=== PATIENT | male | born 1960 | race Caucasian/White ===

== ENCOUNTER 2025-02-24 13:47 | Inpatient (IN) | payer BC, SELFPAY ==
[2025-02-24] VITALS (30 sets, daily range): BP systolic 126–171; BP diastolic 76–101; PULSE 82–96; RESP 10–24; O2SAT 93–97; BMI 90.1; BMI 33.5
--- NOTE | 2025-02-24 12:54 | IR_ITS ---
APPROVED REPORT Patient Location: [facility] Sealer: ALAN Green RT (R) PROCEDURES Left heart catheterization Left ventriculogram Selective coronary angiogram Mechanical thrombectomy to the proximal LAD Drug-eluting stent deployment to the proximal and mid LAD in a contiguous manner Intravascular ultrasound of the LAD INDICATION Acute anterior ST elevation myocardial infarction, Coronary artery disease, Complex intervention Informed consent was obtained prior to the procedure. COMPLICATIONS None Estimated Blood Loss: Less than 10 mls TECHNIQUE One percent lidocaine used to anesthetize the right anterior aspect of the wrist. The right radial artery was accessed via the Seldinger technique. A 6 Sinhala sheath was placed in the right radial artery. 2.5 mg of Verapamil, 800 mcg of nitroglycerin, 1mg Lidocaine and 5000 U Heparin were given through the arterial sheath. The JL3 catheter was also used to perform left heart catheterization, left ventriculogram and selective coronary angiogram. Therapeutic heparin was already administered giving a therapeutic ACT and the guide catheter was placed in the left main artery followed by Choice PT extra-support wire placed distally. A penumbra catheter was advanced and passed giving mechanical thrombectomy to the LAD and restoring SHARA II flow. A 3 mm x 12 mm noncompliant balloon was deployed in the proximal and mid LAD to predilate the stenosis further reducing the stenosis. A 3.5 x 38 mm Fre[place] frontier stent was deployed at 20 waldo reducing the stenosis to 30%. A 3.5 x 12 mm noncompliant balloon was placed in the mid LAD and deployed at 20 and then 24 waldo to further post dilate. An additional 3.75 x 8 mm noncompliant balloon was deployed in the same area at 24 waldo reducing the stenosis to 10%. At the end of the procedure the apparatus was removed sheath was removed and hemostasis was achieved using TR banding patient was transferred to the postop holding in stable condition. Initial presentation the LAD had SHARA 0 flow with SHARA-3 flow at the end of the procedure ANGIOGRAPHIC RESULTS The left main artery Normal The left anterior descending artery Initially proximally occluded. Following revascularization there is a stent in the proximal to mid segment which is widely patent with 10% residual stenosis due to extensive mid vessel calcification throughout the LAD The circumflex artery Nondominant mild atheromatous plaque The right coronary artery Massively large dominant with diffuse 20% luminal regularities The ZURITA ventriculogram reveals Performed but not adequately opacified to estimate ejection fraction. Ejection fraction is greater than 30% The left ventricular end-diastolic pressure 15 mmHg IMPRESSION Acute proximal LAD occlusion as described above Successful stenting of the proximal LAD 100% occlusion reduced to less than 10% with 1 drug-eluting stent Normal LVEDP PLAN 1. Continue night pride drip to blood pressure of approximately 130-140 systolic 2. Dual antiplatelet therapy 3. LDL less than 55 to be achieved with high intensity statin 4. Monitor on telemetry for at least 48 hours 5. Cardiac rehabilitation 6. Avoidance of tobacco products 7. Official echocardiogram tomorrow to determine extent of myocardial damage and which medicines to start Electronically signed by : Rigo Dominguez MD 02/24/2025 14:02:37
[2025-02-24] MEDS: NITROGLYCERIN 800MCG/8ML SYR (CATH LAB) 800 MCG IA (14:07)
[2025-02-24] MEDS: HEPARIN 1,000 UNITS/ML 10ML VIAL (CATH LAB) 5000 UNIT IV (14:08)
[2025-02-24] MEDS: LIDOCAINE 1% 10ML MDV 10 ML IJ (14:09)
[2025-02-24] MEDS: HEPARIN 1,000 UNITS/500ML NS (CATH LAB) 3000 UNIT IV (14:09)
[2025-02-24] MEDS: VERAPAMIL 2.5MG/ML 2ML VIAL 2.5 MG IV (14:09)
[2025-02-24] MEDS: MIDAZOLAM HCL 1MG/ML 5ML VIAL 1 MG IV (14:09)
[2025-02-24] MEDS: FENTANYL 100MCG/2ML VIAL 25 MCG IV (14:10)
[2025-02-24] MEDS: IOPAMIDOL-370 (76%);100ML BOTTLE 120 ML IV (14:11)
[2025-02-24 14:12] LABS: CATHL Activated Clotting Time 266 SEC (74-125)
[2025-02-24] MEDS: 0.9 % SODIUM CHLORIDE 500 ML 25 ML IV (14:15)
[2025-02-24] MEDS: NITROPRUSSIDE SODIUM 50 MG in DEXTROSE 5 % IN WATER 250 ML 10.07 MG IV (14:17)
--- NOTE | 2025-02-24 14:17 | EXP.HP ---
History of Present Illness *Admission Date: 02/24/25 *Reason for visit:: Had chest pain *History of present illness: Harjeet Yoon is a 64-year-old male with a medical history significant for former smoker, hypertension, type 2 diabetes, obesity who presents as a transfer from [facility] after presenting with chest pain. Patient states he started having some substernal chest pain this morning after going to the grocery store. He denies radiation, concomitant shortness of breath or dizziness. Denies former cardiac history. No recent medication changes. He states he takes for blood pressure medications. Former intermittent smoker, does not drink alcohol much. Dr. Dominguez was consulted and noted he had ST elevations in leads V2 and V3 with hyperacute T waves, and patient was transferred to our facility with STEMI alert. He received 1 stent to the LAD. Patient tolerated procedure well. It was noted his systolic blood pressures were in the 200s, was started on nitroprusside drip. On my evaluation, patient was lying comfortably in bed without acute distress. No chest pain, shortness of breath. Workup significant for WBC 15.4, hemoglobin A1c 6.9%, BNP 685. Discussed case with Dr. Dominguez and agreed to admit for further evaluation and management. [facility] Disclaimer: The information contained in this section may have been updated after the patient was seen, as this information can be updated by other users. Medical History (Updated 02/24/25 @ 19:08 by Prabhu Dove MD) Rheumatoid arthritis History of gastroesophageal reflux (GERD) Pre-diabetes Hyperlipidemia Hypertension Deep vein thrombosis (DVT) Surgical History (Updated 02/24/25 @ 16:04 by Juana Schaefer RN) History of tonsillectomy Family History (Updated 02/24/25 @ 16:04 by Junaa Schaefer RN) Other Family history of diabetes mellitus type II Family history of hyperlipidemia Family history of hypertension Family history of stroke Social History (Updated 02/24/25 @ 16:04 by Juana Schaefer RN) Smoking Status: Never smoker alcohol intake: never current occupational status: retired Travel in the last 8 weeks?: None Have you lived/traveled outside [place] in past 30 days?: No Contact w/someone who lives/traveled outside US past 30 days?: No Exposure to someone with infectious disease in past 14 days?: No Do you have a fever (greater than 100.4 F or 38 C)?: No Have you tested positive for COVID-19?: No Exposed to someone with COVID-19 in past 14 days?: No Do you have a sore throat?: No Do you have a cough?: No Do you have any weakness?: No Are you experiencing any nausea/vomitting?: No Do you have any diarrhea?: No Are you experiencing any unusual bleeding?: No Do you have any muscle aches/pain?: No Do you have any abdominal pain?: No Are you experiencing loss of taste or smell?: No Meds Home Medications and Allergies Home Medications ?Medication ?Instructions ?Recorded ?Confirmed ?Type amlodipine 10 mg tablet 10 mg PO DAILY 02/24/25 02/24/25 History aspirin 81 mg capsule,delayed 81 mg PO DAILY 02/24/25 02/24/25 History release cholecalciferol (vitamin D3) 50 2,000 unit PO DAILY 02/24/25 02/24/25 History mcg (2,000 unit) capsule (Vitamin D3) doxycycline hyclate 50 mg capsule 50 mg PO DAILY 02/24/25 02/24/25 History hydralazine 25 mg tablet 25 mg PO BID 02/24/25 02/24/25 History losartan 100 1 tab PO DAILY 02/24/25 02/24/25 History mg-hydrochlorothiazide 25 mg tablet metformin 500 mg tablet 500 mg PO BID 02/24/25 02/24/25 History metoprolol succinate 50 mg 50 mg PO BID 02/24/25 02/24/25 History tablet,extended release 24 hr omega-3 fatty acids 1 cap PO BID 02/24/25 02/24/25 History prednisone 5 mg tablet 15 mg PO DAILY 02/24/25 02/24/25 History rosuvastatin 5 mg tablet 5 mg PO DAILY 02/24/25 02/24/25 History New Prescriptions to Start Prescriptions: Allergies Allergy/AdvReac Type Severity Reaction Status Date / Time No Known Allergies Allergy Verified 02/24/25 15:15 Exam Data for Last 24 hours Vital signs and Labs for Last 24 Hours: Laboratory Results - last 24 hr 02/24/25 14:46: Activated Clotting Time 266 H* I & O for Last 24 hours: Intake & Output 02/21/25 02/22/25 02/23/25 02/24/25 23:59 23:59 23:59 23:59 Intake Total 0 / 0 Balance 0 / 0 Weight 111 kg Constitutional Constitutional: no acute distress, obese and chronically ill appearing *Routine HEENT Exam Head: Present normocephalic Eye: Present EOMI and PERRL ENT: Present mucous membranes moist *Routine Neck Exam Neck: Present supple; Absent lymphadenopathy *Routine Respiratory Exam Respiratory: Present CTA bilaterally *Routine Cardiovascular Exam Cardiovascular: Present RRR *Routine Abdominal Exam Abdominal: Present soft and normoactive bowel sounds; Absent tenderness *Routine Rectal Exam Rectal:: deferred *Routine Genitalia Exam Genitalia:: deferred *Routine Extremities Exam Extremities: Absent cyanosis, clubbing or edema *Routine Skin Exam Skin: Present warm; Absent rash *Routine Neurological Exam Neurological: Present alert and oriented X3 Assessment and Plan *Assessment and plan (1) Hypertensive emergency: Status: Acute Category: Medical Code(s): I16.1 - Hypertensive emergency (2) STEMI (ST elevation myocardial infarction): Status: Acute Category: Medical Code(s): I21.3 - ST elevation (STEMI) myocardial infarction of unspecified site (3) CAD (coronary artery disease): Status: Acute Category: Medical Code(s): I25.10 - Atherosclerotic heart disease of [place] coronary artery without angina pectoris (4) Type 2 diabetes mellitus: Status: Acute Category: Medical Code(s): E11.9 - Type 2 diabetes mellitus without complications (5) Obesity: Status: Acute Category: Medical Code(s): E66.9 - Obesity, unspecified Plan Harjeet Yoon is a 64-year-old male with a medical history significant for former smoker, hypertension, type 2 diabetes, obesity who presents as a transfer from [facility] after presenting with chest pain. Patient states he started having some substernal chest pain this morning after going to the grocery store. He denies radiation, concomitant shortness of breath or dizziness. Denies former cardiac history. No recent medication changes. He states he takes for blood pressure medications. Former intermittent smoker, does not drink alcohol much. Dr. Dominguez was consulted and noted he had ST elevations in leads V2 and V3 with hyperacute T waves, and patient was transferred to our facility with STEMI alert. He received 1 stent to the LAD. Patient tolerated procedure well. It was noted his systolic blood pressures were in the 200s, was started on nitroprusside ip. On my evaluation, patient was lying comfortably in bed without acute distress. No chest pain, shortness of breath. Workup significant for WBC 15.4, hemoglobin A1c 6.9%, BNP 685. Discussed case with Dr. Dominguez and agreed to admit for further evaluation and management. #Hypertensive emergency #STEMI #CAD ? Patient presented as a transfer from [facility] as a STEMI. EKG with ST elevations in leads V2 and V3 with hyperacute T waves. Systolic blood pressures were noted to be in the 200s. ? Cardiology consulted, s/p PCI with CATE x 1 to the LAD. Patient tolerated procedure well. ? Continue nitroprusside drip for SBP between 100 and 140. Started amlodipine 10 mg nightly. ? Continue aspirin 81 mg, Brilinta 90 mg twice daily, atorvastatin 40 mg, metoprolol succinate 25 mg. ? Follow-up ECHO in the morning. ? Follow-up renal artery duplex ultrasound in the morning. Hold ARB/INEZ inhibitor until renal artery stenosis ruled out. ? A1c 6.9%, LDL 92, TSH normal. ? Cardiology consulted, pending further recommendations. ? Continuous cardiac telemetry. #Type 2 diabetes ? LDSSI, ACHS glucose checks. #Obesity ? BMI 33. Complicates all aspects of care. Full code DVT prophylaxis: Lovenox 40 mg
--- NOTE | 2025-02-24 14:46 | PC.NURSE ---
Patient arrived on unit via stretcher accompanied by cath lab technologist staff Maria Elena Key and Magalys Holder [phone]
[2025-02-24 15:23] LABS: Hematocrit 40.0 % (42.0-52.0); Hemoglobin 13.4 g/dL (14.1-18.0); Immature Granulocytes % 0.6 %; Mean Corpuscular HGB Conc 33.5 g/dL (31.8-35.4); Mean Corpuscular Hemoglobin 29.7 pg (27.0-31.2); Mean Corpuscular Volume 88.7 fl (80-94); Nucleated Red Blood Cells % 0 %; Platelet Count 317 K/mm3 (142-424); Red Blood Count 4.51 M/mm3 (4.60-6.20); Red Cell Distribution Width-SD 46.7 fL; White Blood Count 15.4 K/mm3 (4.8-10.8)
[2025-02-24 15:35] LABS: Alanine Aminotransferase 55 U/L (12-78); Albumin Level 4.6 g/dl (3.5-5.0); Albumin/Globulin Ratio 1.3 (1.1-1.8); Alkaline Phosphatase 79 U/L (38-126); Anion Gap 13.0 mEq/L (5-15); Aspartate Amino Transferase 121 U/L (17-59); Bilirubin,Total 0.5 mg/dl (0.2-1.3); Blood Urea Nitrogen 22 mg/dl (9-20); Calcium 9.8 mg/dl (8.4-10.2); Carbon Dioxide 25 mmol/L (22.0-30.0); Chloride 97 mmol/L (98-107); Cholesterol 153 mg/dl (140-200); Creatinine Clearance Estimated 12 mL/min (50-200); Creatinine,Serum 1.00 mg/dl (0.66-1.25); Estimated Glomerular Filt Rate 76 ml/min (>60); GFR (African American) 92 ML/MIN (>60); Globulin 3.5 g/dL (1.3-3.2); Glucose 196 mg/dl (74-100); HDL Cholesterol 57 mg/dl (40-60); Potassium 4.0 mmoL/L (3.5-5.1); Sodium 131 mmol/L (136-145); Total Protein,Serum 8.1 g/dl (6.3-8.2); Triglycerides 64 mg/dl (30-150)
[2025-02-24 15:44] LABS: NT Pro Brain Natriuretic Pep. 685 pg/mL (0-125)
[2025-02-24 15:57] LABS: Hemoglobin A1C 6.9 % (4.0-6.0)
[2025-02-24 16:06] LABS: Thyroid Stimulating Hormone 2.24 uIU/mL (0.465-4.68)
--- NOTE | 2025-02-24 17:15 | PC.NURSE ---
PT REFUSED CRE SWAB
[2025-02-24 20:00] LABS: POC Glucose,Bedside 152 gm/dL (70-110)
[2025-02-24] MEDS: AMLODIPINE 10MG TABLET 10 MG PO (20:24)
[2025-02-24] MEDS: humaLOG 100 UNITS/ML 10ML VIAL (SSI) SUBCUT (20:25)
[2025-02-24] MEDS: METOPROLOL SUCCINATE XL 25MG TABLET 25 MG PO (20:25)
[2025-02-25] VITALS (21 sets, daily range): BP systolic 126–208; BP diastolic 76–107; PULSE 83–122; RESP 9–22; TEMP 36.6–37.2; O2SAT 94–99; BMI 33.2
[2025-02-25] MEDS: MELATONIN 5MG TABLET 5 MG PO ×2 (01:56→20:06)
[2025-02-25 06:25] LABS: POC Glucose,Bedside 154 gm/dL (70-110)
[2025-02-25 06:36] LABS: Hematocrit 43.3 % (42.0-52.0); Hemoglobin 13.9 g/dL (14.1-18.0); Immature Granulocytes % 0.6 %; Mean Corpuscular HGB Conc 32.1 g/dL (31.8-35.4); Mean Corpuscular Hemoglobin 29.1 pg (27.0-31.2); Mean Corpuscular Volume 90.6 fl (80-94); Nucleated Red Blood Cells % 0 %; Platelet Count 281 K/mm3 (142-424); Red Blood Count 4.78 M/mm3 (4.60-6.20); Red Cell Distribution Width-SD 47.9 fL; White Blood Count 17.1 K/mm3 (4.8-10.8)
[2025-02-25 06:45] LABS: Alanine Aminotransferase 47 U/L (12-78); Albumin Level 4.7 g/dl (3.5-5.0); Albumin/Globulin Ratio 1.2 (1.1-1.8); Alkaline Phosphatase 84 U/L (38-126); Anion Gap 12.9 mEq/L (5-15); Aspartate Amino Transferase 101 U/L (17-59); Bilirubin,Total 0.8 mg/dl (0.2-1.3); Blood Urea Nitrogen 18 mg/dl (9-20); Calcium 9.8 mg/dl (8.4-10.2); Carbon Dioxide 19 mmol/L (22.0-30.0); Chloride 103 mmol/L (98-107); Creatinine Clearance Estimated 117 mL/min (50-200); Creatinine,Serum 0.80 mg/dl (0.66-1.25); Estimated Glomerular Filt Rate 98 ml/min (>60); GFR (African American) 119 ML/MIN (>60); Globulin 3.8 g/dL (1.3-3.2); Glucose 158 mg/dl (74-100); Magnesium 1.7 mg/dl (1.6-2.3); Potassium 3.9 mmoL/L (3.5-5.1); Sodium 131 mmol/L (136-145); Total Protein,Serum 8.5 g/dl (6.3-8.2)
--- NOTE | 2025-02-25 08:12 | HMH.PHAINT1 ---
Pharmacy Intervention Comments: MEDICATION RECONCILIATION COMPLETED ON PATIENT USING EXTERNAL FILL HISTORY FROM PHARMACY. -JAVIER CASTILLO, EMILYD
[2025-02-25] MEDS: METOPROLOL SUCCINATE XL 25MG TABLET 25 MG PO (08:28)
[2025-02-25] MEDS: ASPIRIN EC 81MG TABLET 81 MG PO (08:29)
[2025-02-25] MEDS: HYDROCODONE/APAP 5/325 MG TABLET 1 TAB PO (08:58)
[2025-02-25] MEDS: DEFINITY US ECHO CONTRAST 2ML INJ 2 MG IV (09:27)
[2025-02-25 11:15] LABS: POC Glucose,Bedside 163 gm/dL (70-110)
[2025-02-25] MEDS: humaLOG 100 UNITS/ML 10ML VIAL (SSI) SUBCUT ×2 (11:15→20:05)
[2025-02-25] MEDS: HYDRALAZINE HCL 25MG TABLET 50 MG PO ×2 (11:50→20:06)
--- NOTE | 2025-02-25 12:42 | EXP.PN ---
Subjective *Date: 02/25/25 *Time: 12:42 Interval history: Patient doing well today, no complaints. Denies chest pain, shortness of breath. Does have low back pain which he attributes to the bed. Otherwise no other complaints. Anticipate discharge tomorrow if stable. Exam Data for Last 24 hours Vital signs and Labs for Last 24 Hours: Temp Pulse Resp BP Pulse Ox O2 Del Method 98.2 F 109 H 19 172/97 H 96 Room Air 02/25/25 12:00 02/25/25 12:00 02/25/25 12:00 02/25/25 12:00 02/25/25 12:00 02/25/25 12:00 Laboratory Results - last 24 hr 02/24/25 14:46: Activated Clotting Time 266 H* 02/24/25 15:10: WBC 15.4 H, RBC 4.51 L, Hgb 13.4 L, Hct 40.0 L, MCV 88.7, MCH 29.7, MCHC 33.5, RDW 14.6, Plt Count 317, MPV 9.7, Neut % (Auto) 77.9, Lymph % (Auto) 15.9, [place] % (Auto) 5.2, Eos % (Auto) 0.1, Baso % (Auto) 0.3, Neut # (Auto) 12.0 H, Lymph # (Auto) 2.4, [place] # (Auto) 0.8, Eos # (Auto) 0.0, Baso # (Auto) 0.1, Sodium 131 L, Potassium 4.0, Chloride 97 L, Carbon Dioxide 25, Anion Gap 13.0, BUN 22 H, Creatinine 1.00, Estimated Creat Clear 12, Estimated GFR 76, Est GFR ( Amer) 92, Glucose 196 H, Hemoglobin A1c 6.9 H, Calcium 9.8, Total Bilirubin 0.5, AST 121 H, ALT 55, Alkaline Phosphatase 79, NT-Pro-B Natriuret Pep 685 H, Total Protein 8.1, Albumin 4.6, Globulin 3.5 H, Albumin/Globulin Ratio 1.3, Triglycerides 64, Cholesterol 153, LDL Cholesterol Direct 92.08 L, VLDL Cholesterol 13, HDL Cholesterol 57, Cholesterol/HDL Ratio 2.7, TSH 2.24 02/24/25 19:45: POC Glucose 152 H 02/25/25 06:00: POC Glucose 154 H 02/25/25 06:18: WBC 17.1 H, RBC 4.78, Hgb 13.9 L, Hct 43.3, MCV 90.6, MCH 29.1, MCHC 32.1, RDW 14.6, Plt Count 281, MPV 10.4, Neut % (Auto) 73.8, Lymph % (Auto) 16.7, [place] % (Auto) 7.4, Eos % (Auto) 1.1, Baso % (Auto) 0.4, Neut # (Auto) 12.6 H, Lymph # (Auto) 2.9, [place] # (Auto) 1.3 H, Eos # (Auto) 0.2, Baso # (Auto) 0.1, Sodium 131 L, Potassium 3.9, Chloride 103, Carbon Dioxide 19 L, Anion Gap 12.9, BUN 18, Creatinine 0.80, Estimated Creat Clear 117, Estimated GFR 98, Est GFR ( Amer) 119 D, Glucose 158 H, Calcium 9.8, Magnesium 1.7, Total Bilirubin 0.8, AST 101 H, ALT 47, Alkaline Phosphatase 84, Total Protein 8.5 H, Albumin 4.7, Globulin 3.8 H, Albumin/Globulin Ratio 1.2 02/25/25 11:04: POC Glucose 163 H I & O for Last 24 hours: Intake & Output 02/22/25 02/23/25 02/24/25 02/25/25 23:59 23:59 23:59 23:59 Intake Total 809.561 / 809.561 510.217 / 510.217 Output Total 1750 / 1750 1900 / 1900 Balance -940.439 / -940.439 -1389.783 / -1389.783 Weight 108.862 kg 107.6 kg Constitutional Constitutional: no acute distress, obese and chronically ill appearing *Routine HEENT Exam Head: Present normocephalic Eye: Present EOMI and PERRL ENT: Present mucous membranes moist *Routine Neck Exam Neck: Present supple; Absent lymphadenopathy *Routine Respiratory Exam Respiratory: Present CTA bilaterally *Routine Cardiovascular Exam Cardiovascular: Present RRR *Routine Abdominal Exam Abdominal: Present soft and normoactive bowel sounds; Absent tenderness *Routine Extremities Exam Extremities: Absent cyanosis, clubbing or edema *Routine Skin Exam Skin: Present warm; Absent rash *Routine Neurological Exam Neurological: Present alert and oriented X3 Assessment and Plan *Assessment and plan (1) Hypertensive emergency: Status: Acute Category: Medical Code(s): I16.1 - Hypertensive emergency (2) STEMI (ST elevation myocardial infarction): Status: Acute Category: Medical Code(s): I21.3 - ST elevation (STEMI) myocardial infarction of unspecified site (3) CAD (coronary artery disease): Status: Acute Category: Medical Code(s): I25.10 - Atherosclerotic heart disease of [place] coronary artery without angina pectoris (4) Type 2 diabetes mellitus: Status: Acute Category: Medical Code(s): E11.9 - Type 2 diabetes mellitus without complications (5) Obesity: Status: Acute Category: Medical Code(s): E66.9 - Obesity, unspecified Plan Harjeet Yoon is a 64-year-old male with a medical history significant for former smoker, hypertension, type 2 diabetes, obesity who presents as a transfer from [facility] after presenting with chest pain. Patient states he started having some substernal chest pain this morning after going to the grocery store. He denies radiation, concomitant shortness of breath or dizziness. Denies former cardiac history. No recent medication changes. He states he takes for blood pressure medications. Former intermittent smoker, does not drink alcohol much. Dr. Dominguez was consulted and noted he had ST elevations in leads V2 and V3 with hyperacute T waves, and patient was transferred to our facility with STEMI alert. He received 1 stent to the LAD. Patient tolerated procedure well. It was noted his systolic blood pressures were in the 200s, was started on nitroprusside drip. On my evaluation, patient was lying comfortably in bed without acute distress. No chest pain, shortness of breath. Workup significant for WBC 15.4, hemoglobin A1c 6.9%, BNP 685. Discussed case with Dr. Dominguez and agreed to admit for further evaluation and management. #Hypertensive emergency, resolved #STEMI #Hypertension #CAD ? Patient presented as a transfer from [facility] as a STEMI. EKG with ST elevations in leads V2 and V3 with hyperacute T waves. Systolic blood pressures were noted to be in the 200s. ? Cardiology consulted, s/p PCI on 02/24/2025 with CATE x 1 to the LAD. Patient tolerated procedure well. ? ECHO on 02/25/2025 revealed LVEF 65%, akinesis of the LV apical wall. Renal artery duplex remarkable for significant renal artery stenosis. ? A1c 6.9%, LDL 92, TSH normal. ? Weaned off nitro drip today, continue home amlodipine 10 mg, losartan 100 mg, hydrochlorothiazide 25 mg, metoprolol succinate 50 mg twice daily. BP currently 172/97, follow-up BP after restarting home meds. ? Cardiology increased home hydralazine from 25 to 50 mg 3 times daily. ? Continue aspirin 81 mg, Brilinta 90 mg twice daily, atorvastatin 40 mg, metoprolol succinate 25 mg. ? Discussed with cardiology, will monitor for total of 48 hours and anticipate discharge tomorrow if stable. ? Continuous cardiac telemetry. #Type 2 diabetes ? Hemoglobin A1c 6.9%. LDSSI, ACHS glucose checks. Hold home metformin for now. #Rheumatoid arthritis ? Continue home prednisone 15 mg daily. #Obesity ? BMI 33. Complicates all aspects of care. Full code DVT prophylaxis: Lovenox 40 mg
--- NOTE | 2025-02-25 13:45 | EXP.CARD.CON ---
History of Present Illness History of Present Illness Consult date: 02/25/25 Chief complaint: CP History of present illness: 64-year-old white male new to this facility as a transfer from [facility] for STEMI. Patient has no known prior cardiovascular disease but is a former tobacco user. Has high blood pressure diabetes and obesity. States send that he was out shopping when he developed symptom of constant chest heaviness. Went home and symptoms worsen over the following hour so he presented to the emergency room where he was found to have elevated troponin and ST elevations. Patient was transferred to this facility for prompt heart cath. He received stenting of an occluded LAD. Other vessels were nonobstructive. He was admitted overnight in the ICU on nitroprusside drip for systolic blood pressures greater than 200. On my arrival this morning patient's blood pressure is 140?150 off the drip and he reports being asymptomatic. 2D echo indicates normal EF but akinesis of the LV apical wall. [facility] Disclaimer: The information contained in this section may have been updated after the patient was seen, as this information can be updated by other users. Medical History Rheumatoid arthritis History of gastroesophageal reflux (GERD) Pre-diabetes Hyperlipidemia Hypertension Deep vein thrombosis (DVT) Surgical History History of tonsillectomy Family History Other Family history of diabetes mellitus type II Family history of hyperlipidemia Family history of hypertension Family history of stroke Social History Smoking Status: Never smoker alcohol intake: never current occupational status: retired Travel in the last 8 weeks?: None Have you lived/traveled outside US in past 30 days?: No Contact w/someone who lives/traveled outside US past 30 days?: No Exposure to someone with infectious disease in past 14 days?: No Do you have a fever (greater than 100.4 F or 38 C)?: No Have you tested positive for COVID-19?: No Exposed to someone with COVID-19 in past 14 days?: No Do you have a sore throat?: No Do you have a cough?: No Do you have any weakness?: No Are you experiencing any nausea/vomitting?: No Do you have any diarrhea?: No Are you experiencing any unusual bleeding?: No Do you have any muscle aches/pain?: No Do you have any abdominal pain?: No Are you experiencing loss of taste or smell?: No Review of Systems Constitutional Constitutional: Denies fatigue and Denies weakness Eyes Eyes: Denies loss of vision ENT Ears, Nose, Mouth, and Throat: Denies hearing loss and Denies vertigo *Cardiovascular Cardiovascular: Denies chest pain, Denies dyspnea and Denies syncope *Respiratory Respiratory: Denies cough and Denies dyspnea *Gastrointestinal Gastrointestinal: Denies change in stool character, Denies nausea and Denies vomiting *Genitourinary Genitourinary: Denies difficulty urinating *Musculoskeletal Musculoskeletal: Denies muscle weakness Integumentary/Breasts Skin/Breast: Denies changing lesions *Neurologic Neurologic: Denies loss of vision, Denies syncope, Denies vertigo and Denies weakness Endocrine Endocrine: Denies fatigue Exam Data for Last 24 hours Vital signs and Labs for Last 24 Hours: Temp Pulse Resp BP Pulse Ox O2 Del Method 98.2 F 109 H 19 172/97 H 96 Room Air 02/25/25 12:00 02/25/25 12:00 02/25/25 12:00 02/25/25 12:00 02/25/25 12:00 02/25/25 12:00 Laboratory Results - last 24 hr 02/24/25 14:46: Activated Clotting Time 266 H* 02/24/25 15:10: WBC 15.4 H, RBC 4.51 L, Hgb 13.4 L, Hct 40.0 L, MCV 88.7, MCH 29.7, MCHC 33.5, RDW 14.6, Plt Count 317, MPV 9.7, Neut % (Auto) 77.9, Lymph % (Auto) 15.9, [place] % (Auto) 5.2, Eos % (Auto) 0.1, Baso % (Auto) 0.3, Neut # (Auto) 12.0 H, Lymph # (Auto) 2.4, [place] # (Auto) 0.8, Eos # (Auto) 0.0, Baso # (Auto) 0.1, Sodium 131 L, Potassium 4.0, Chloride 97 L, Carbon Dioxide 25, Anion Gap 13.0, BUN 22 H, Creatinine 1.00, Estimated Creat Clear 12, Estimated GFR 76, Est GFR ( Amer) 92, Glucose 196 H, Hemoglobin A1c 6.9 H, Calcium 9.8, Total Bilirubin 0.5, AST 121 H, ALT 55, Alkaline Phosphatase 79, NT-Pro-B Natriuret Pep 685 H, Total Protein 8.1, Albumin 4.6, Globulin 3.5 H, Albumin/Globulin Ratio 1.3, Triglycerides 64, Cholesterol 153, LDL Cholesterol Direct 92.08 L, VLDL Cholesterol 13, HDL Cholesterol 57, Cholesterol/HDL Ratio 2.7, TSH 2.24 02/24/25 19:45: POC Glucose 152 H 02/25/25 06:00: POC Glucose 154 H 02/25/25 06:18: WBC 17.1 H, RBC 4.78, Hgb 13.9 L, Hct 43.3, MCV 90.6, MCH 29.1, MCHC 32.1, RDW 14.6, Plt Count 281, MPV 10.4, Neut % (Auto) 73.8, Lymph % (Auto) 16.7, [place] % (Auto) 7.4, Eos % (Auto) 1.1, Baso % (Auto) 0.4, Neut # (Auto) 12.6 H, Lymph # (Auto) 2.9, [place] # (Auto) 1.3 H, Eos # (Auto) 0.2, Baso # (Auto) 0.1, Sodium 131 L, Potassium 3.9, Chloride 103, Carbon Dioxide 19 L, Anion Gap 12.9, BUN 18, Creatinine 0.80, Estimated Creat Clear 117, Estimated GFR 98, Est GFR ( Amer) 119 D, Glucose 158 H, Calcium 9.8, Magnesium 1.7, Total Bilirubin 0.8, AST 101 H, ALT 47, Alkaline Phosphatase 84, Total Protein 8.5 H, Albumin 4.7, Globulin 3.8 H, Albumin/Globulin Ratio 1.2 02/25/25 11:04: POC Glucose 163 H I & O for Last 24 hours: Intake & Output 02/22/25 02/23/25 02/24/25 02/25/25 23:59 23:59 23:59 23:59 Intake Total 809.561 / 809.561 510.217 / 510.217 Output Total 1750 / 1750 1900 / 1900 Balance -940.439 / -940.439 -1389.783 / -1389.783 Weight 240 lb 237 lb 3.478 oz Meds Home Medications and Allergies Home Medications ?Medication ?Instructions ?Recorded ?Confirmed ?Type amlodipine 10 mg tablet 10 mg PO DAILY 02/24/25 02/24/25 History cholecalciferol (vitamin D3) 50 2,000 unit PO DAILY 02/24/25 02/24/25 History mcg (2,000 unit) capsule (Vitamin D3) doxycycline hyclate 50 mg capsule 50 mg PO DAILY 02/24/25 02/24/25 History hydralazine 25 mg tablet 25 mg PO BID 02/24/25 02/24/25 History losartan 100 1 tab PO DAILY 02/24/25 02/24/25 History mg-hydrochlorothiazide 25 mg tablet metformin 500 mg tablet 500 mg PO BID 02/24/25 02/24/25 History metoprolol succinate 50 mg 50 mg PO BID 02/24/25 02/24/25 History tablet,extended release 24 hr prednisone 5 mg tablet 15 mg PO DAILY 02/24/25 02/24/25 History rosuvastatin 5 mg tablet 5 mg PO DAILY 02/24/25 02/24/25 History aspirin 81 mg tablet,delayed 81 mg PO DAILY 02/25/25 02/25/25 History release New Prescriptions to Start Prescriptions: Allergies Allergy/AdvReac Type Severity Reaction Status Date / Time No Known Allergies Allergy Verified 02/24/25 15:15 Assessment and Plan *Assessment and plan (1) STEMI (ST elevation myocardial infarction): Status: Acute Category: Medical Code(s): I21.3 - ST elevation (STEMI) myocardial infarction of unspecified site (2) CAD (coronary artery disease): Status: Acute Category: Medical Code(s): I25.10 - Atherosclerotic heart disease of [place] coronary artery without angina pectoris (3) Type 2 diabetes mellitus: Status: Acute Category: Medical Code(s): E11.9 - Type 2 diabetes mellitus without complications (4) Hypertensive emergency: Status: Acute Category: Medical Code(s): I16.1 - Hypertensive emergency Plan CAD s/p AW-STEMI 02/24 - new dx this admission - [facility]: stent to occluded LAD, other vessels OK - ECHO: EF 65% but akinesis of LV apical wall - Plan: GDMT for [place] -aspirin, Brilinta, statin, beta-delvin. 48h obs for arrhythmia Htn - improving off Nitro drip - Cont irbesartan, metoprolol, hydrochlorothiazide, amlodipine. Increase Hydralazine to 50mg TID DM-II - A1C 6.9 - cosider GLP-1 as outpatient HLD - LDL 92, goal is <55 now with CAD/DM - add high dose statin CV stable. Continue to titrate BP meds, likely home tomorrow.
--- NOTE | 2025-02-25 14:19 | CA_ITS ---
APPROVED REPORT EXAM: Comprehensive 2D, Doppler, and color-flow Echocardiogram Boat Oar Maker: Licha Pineda RVT Ht: 5 ft 10 in Wt: 237lbs BSA: 2.24 BP: 131/89 mmHg Indications: STEMI,HYPERTENSION,CHEST PAIN Echo Enhancing Agent Indication: Endocardial border delineation Agent(s) / Amount(s) Used: Definity 2 cc 2D Dimensions IVSd 1.67 cm M: 0.6-1.2 LVEF (Visual) 41.70 % PWd 1.25 cm M: 0.6 - 1.2 LA Volume 24.70 mL LVDd 4.25 cm M: 4.2 - 5.9 LA Volume Index 10.98 mL/m2 (M/F) 16-34 LVDs 3.39 cm M: 2.5 - 4.0 M-Mode Dimensions LA Diam 4.61 cm (1.9-4.0) LV Diastology E Decel Time 150 (160-240 msec) E/A Ratio 0.3 Aortic Valve MARINA Index 0.34 cm2/m2 AoV Peak Andrés. 260.0 (50-130 cm/s) AO Peak GR. 28.60 mmHg AO Mean GR. 15.40 (<5 mmHg) AO VTI 57.3 (18-25 cm) MARINA (VTI) 0.79 (2.5-4.5 cm2) Mitral Valve MV E Max Andrés. 40.0 (40-130 cm/s) MV A Velocity 115.0 (40-130 cm/s) E/A Ratio 0.35 MV PHT 44.0 ms Pulmonary Valve PV Peak Velocity 84.0 (50-150 cm/s) Left Ventricle The left ventricle is normal size. Left ventricular systolic function is normal. The left ventricular ejection fraction is within the normal range. There is increased left ventricular wall thickness. There is akinesis of the apical LV wall. The bases are hypercontracticle. The left ventricular diastolic function is indeterminate. No left ventricle thrombus noted on this study. LVEF is 65% Right Ventricle The right ventricle is not well visualized. Atria The left atrium size is normal. The right atrium is not well visualized. There is no color Doppler evidence of interatrial shunt. Aortic Valve The aortic valve is mildly thickened. There is no hemodynamically significant aortic valvular stenosis. No aortic regurgitation is present. Mitral Valve The mitral valve is normal in structure. No evidence of mitral valve stenosis. Trace mitral regurgitation is present. Tricuspid Valve The tricuspid valve leaflets are not well visualized. Pulmonic Valve The pulmonary valve is not well visualized. Great Vessels The aortic root is not well visualized. IVC is normal in size and collapses >50% with inspiration. Pericardium There is no pericardial effusion. Other Information Study Quality: Technically Difficult Conclusion Technically difficult study due to poor acoustic windows. Normal LV systolic function (LVEF 65%). Akinesis of the LV apical wall. No significant valvular stenosis or regurgitation in the visualized valves. Of note, the right side (including right chambers and valves) are not well-visualized. Electronically signed by : Candie Viera MD 02/25/2025 12:15:07
--- NOTE | 2025-02-25 19:06 | CA_ITS ---
FINAL REPORT TECHNIQUE: Grayscale, color Doppler and duplex Doppler ultrasound of the kidneys, aorta and renal arteries was performed. Multiple velocities were measured. CLINICAL HISTORY: HTN COMPARISON: None FINDINGS: Aorta velocity: 64 cm/sec Right kidney: 9.7 cm. No evidence of hydronephrosis or mass. Right intrarenal RI: 0.66-0.75 Right renal artery velocity: 132 cm/sec. Right RAR (Renal artery-Aortic Ratio): 2.06 Left Kidney: 10.9 cm. No evidence of hydronephrosis or mass. Left intrarenal RI: 0.67-0.75 Left renal artery velocity: 181 cm/sec, borderline. Left RAR (Renal Artery-Aortic Ratio): 2.81 IMPRESSION: No evidence of significant renal artery stenosis on the right. Less than 60% stenosis on the left. CT angiogram or postcontrast MR angiogram would be more sensitive for evaluation of possible renal artery stenosis. Reviewed, Interpreted and Dictated by Swathi Greenfield MD Transcribed by Amelie Degroot Authenticated and [facility]
[2025-02-25] MEDS: METOPROLOL SUCCINATE XL 50MG TABLET 50 MG PO (20:06)
[2025-02-25] MEDS: ATORVASTATIN 40MG TABLET 80 MG PO (20:06)
[2025-02-25 20:07] LABS: POC Glucose,Bedside 155 gm/dL (70-110)
[2025-02-26] VITALS (37 sets, daily range): BP systolic 96–182; BP diastolic 61–107; PULSE 66–180; RESP 12–26; TEMP 36.4–37.2; O2SAT 94–99; BMI 32.2
--- NOTE | 2025-02-26 04:08 | PC.NURSE ---
Alert and oriented. No complaints from patient. Uses urinal. Room air. ST on tele, patient has very small runs of elevated HR, last just a few seconds, patient does not feel this and states he has no pain or palpations. Call light in reach.
[2025-02-26 06:18] LABS: Hematocrit 46.6 % (42.0-52.0); Hemoglobin 15.0 g/dL (14.1-18.0); Immature Granulocytes % 0.5 %; Mean Corpuscular HGB Conc 32.2 g/dL (31.8-35.4); Mean Corpuscular Hemoglobin 28.8 pg (27.0-31.2); Mean Corpuscular Volume 89.4 fl (80-94); Nucleated Red Blood Cells % 0 %; Platelet Count 341 K/mm3 (142-424); Red Blood Count 5.21 M/mm3 (4.60-6.20); Red Cell Distribution Width-SD 48.0 fL; White Blood Count 14.8 K/mm3 (4.8-10.8)
[2025-02-26] MEDS: METOPROLOL SUCCINATE XL 50MG TABLET 50 MG PO (08:16)
[2025-02-26] MEDS: ASPIRIN EC 81MG TABLET 81 MG PO (08:16)
[2025-02-26] MEDS: AMLODIPINE 10MG TABLET 10 MG PO (08:17)
[2025-02-26] MEDS: IRBESARTAN 150MG TAB 150 MG PO ×2 (08:17→09:32)
[2025-02-26] MEDS: HYDRALAZINE HCL 25MG TABLET 50 MG PO (08:17)
[2025-02-26 09:02] LABS: Alanine Aminotransferase 42 U/L (12-78); Albumin Level 4.8 g/dl (3.5-5.0); Albumin/Globulin Ratio 1.2 (1.1-1.8); Alkaline Phosphatase 86 U/L (38-126); Anion Gap 17.0 mEq/L (5-15); Aspartate Amino Transferase 52 U/L (17-59); Bilirubin,Total 1.0 mg/dl (0.2-1.3); Blood Urea Nitrogen 24 mg/dl (9-20); Calcium 10.1 mg/dl (8.4-10.2); Carbon Dioxide 20 mmol/L (22.0-30.0); Chloride 103 mmol/L (98-107); Creatinine Clearance Estimated 103 mL/min (50-200); Creatinine,Serum 1.10 mg/dl (0.66-1.25); Estimated Glomerular Filt Rate 68 ml/min (>60); GFR (African American) 82 ML/MIN (>60); Globulin 4.1 g/dL (1.3-3.2); Glucose 136 mg/dl (74-100); Magnesium 2.2 mg/dl (1.6-2.3); Potassium 4.0 mmoL/L (3.5-5.1); Sodium 136 mmol/L (136-145); Total Protein,Serum 8.9 g/dl (6.3-8.2)
[2025-02-26 10:59] LABS: POC Glucose,Bedside 137 gm/dL (70-110)
--- NOTE | 2025-02-26 11:08 | P.PN_ITS ---
Subjective Subjective Date: 02/26/25 Time: 11:08 Interval history: No events overnight. 2D echo shows normal EF. Patient feels stable and ready for discharge. Exam Data for Last 24 hours Vital signs and Labs for Last 24 Hours: Temp Pulse Resp BP Pulse Ox O2 Del Method 98.4 F 118 H 16 149/72 H 98 Room Air 02/26/25 08:00 02/26/25 08:00 02/26/25 08:00 02/26/25 08:00 02/26/25 08:00 02/26/25 08:53 Laboratory Results - last 24 hr 02/25/25 11:04: POC Glucose 163 H 02/25/25 20:00: POC Glucose 155 H 02/26/25 05:35: WBC 14.8 H, RBC 5.21, Hgb 15.0, Hct 46.6, MCV 89.4, MCH 28.8, MCHC 32.2, RDW 14.9, Plt Count 341, MPV 9.9, Neut % (Auto) 67.0, Lymph % (Auto) 22.6, [place] % (Auto) 8.9, Eos % (Auto) 0.6, Baso % (Auto) 0.4, Neut # (Auto) 9.9 H, Lymph # (Auto) 3.3, [place] # (Auto) 1.3 H, Eos # (Auto) 0.1, Baso # (Auto) 0.1, Sodium 136, Potassium 4.0, Chloride 103, Carbon Dioxide 20 L, Anion Gap 17.0 H, BUN 24 H D, Creatinine 1.10 D, Estimated Creat Clear 103, Estimated GFR 68, Est GFR ( Amer) 82 D, Glucose 136 H, Calcium 10.1, Magnesium 2.2 D, Total Bilirubin 1.0, AST 52 D, ALT 42, Alkaline Phosphatase 86, Total Protein 8.9 H, Albumin 4.8, Globulin 4.1 H, Albumin/Globulin Ratio 1.2 02/26/25 10:52: POC Glucose 137 H I & O for Last 24 hours: Intake & Output 02/23/25 02/24/25 02/25/25 02/26/25 23:59 23:59 23:59 23:59 Intake Total 809.561 / 809.561 510.217 / 810.217 720 / 720 Output Total 1750 / 1750 2000 / 2000 150 / 150 Balance -940.439 / -940.439 -1489.783 / -1189.783 570 / 570 Weight 240 lb 237 lb 3.478 oz 230 lb 2 oz Constitutional Constitutional: no acute distress and cooperative *Routine HEENT Exam Eye: Present PERRL *Routine Respiratory Exam Respiratory: Present CTA bilaterally; Absent accessory muscle use, wheezes or crackles *Routine Cardiovascular Exam Cardiovascular: Present RRR, Normal S1 and Normal S2; Absent murmur, gallop or rubs *Routine Abdominal Exam Abdominal: Present soft; Absent tenderness *Routine Extremities Exam Extremities: Present pulses intact; Absent cyanosis or edema *Routine Skin Exam Skin: Present intact; Absent erythema or wounds *Routine Neurological Exam Neurological: Present alert and oriented X3 Routine Psychiatric Exam Psychiatric: Present cooperative Progress Note: A&P Assessment and plan (1) STEMI (ST elevation myocardial infarction): Status: Acute (2) CAD (coronary artery disease): Status: Acute (3) Type 2 diabetes mellitus: Status: Acute (4) Hypertensive emergency: Status: Acute Assessment and Plan Assessment and Plan for All Diagnoses:: CAD s/p AW-STEMI 02/24 - new dx this admission - [facility]: stent to occluded LAD, other vessels OK - ECHO: EF 65% but akinesis of LV apical wall - GDMT for [place] -aspirin, Brilinta, statin, beta-delvin - recommend 2 week monitor at discharge to eval for VT Htn - improving off Nitro drip - Increase irbesartan to 300. Increase Hydralazine to 100mg TID. Continue metoprolol, hydrochlorothiazide, amlodipine. DM-II - A1C 6.9 - cosider GLP-1 as outpatient HLD - LDL 92, goal is <55 now with CAD/DM - add high dose statin CV stable for DC home. Recommend 2-week monitor at discharge. 2-week twice daily blood pressure log. 2 week office f/u with Cardiology. CV DC medications: Aspirin 81 mg p.o. daily Brilinta 90 mg 1 p.o. twice daily Atorvastatin 80 mg 1 p.o. nightly Irbesartan 300 mg 1 p.o. daily Hydralazine 100 mg 3 times daily Metoprolol XL 50 mg twice daily-this is patient preferred regimen rather than daily Hydrochlorothiazide 25 mg p.o. daily Amlodipine 10 mg p.o. daily ADDENDUM: Just prior to discharge and after IVs had been removed patient was standing at bedside with nurse present and he became suddenly diaphoretic with chest discomfort. Patient was hooked back up to telemetry and was found to be in new A-fib RVR with rate 190-200 bpm. Patient was sat back down on the bed and placed in Trendelenburg. Initial blood pressure 100/60. He remained conscious and although diaphoretic was in no obvious distress. Immediate attempt was made to obtain IV access. Patient was given Cardizem bolus within approximately 10 minutes of symptom onset and had rate controlled down to 1- teens. I recommended addition of Cardizem IV-titrate to keep heart rate less than 120. Given 500mL NS. Lovenox administered bedside. Pt being transferred to ICU due to Cardizem drip. Will keep n.p.o. after midnight and consider SUNSHINE cardioversion tomorrow if he does not convert.
--- NOTE | 2025-02-26 12:14 | PC.NURSE ---
RESP CARE NOTE: Event monitor instructed and placed on patient.
--- NOTE | 2025-02-26 13:30 | ECG_ITS ---
APPROVED REPORT Exam: Resting ECG HR:192 bpm ECG Measurements Heart Rate 192 AXES QRSd 102 QRS 61 QT 242 T 260 QTc 340 Conclusion ATRIAL FIBRILLATION WITH RAPID VENTRICULAR RESPONSE ST ELEVATION, CONSIDER ANTERIOR INJURY [MARKED ST ELEVATION W/O NORMALLY INFLECTED T-WAVE IN V2-V5] ACUTE UT UNCONFIRMED REPORT Electronically signed by : Jaron Wills MD 02/27/2025 08:43:07
[2025-02-26] MEDS: ENOXAPARIN 120MG/0.8ML SYRINGE 105 MG SUBCUT (13:41)
[2025-02-26 14:08] LABS: POC Glucose,Bedside 220 gm/dL (70-110)
[2025-02-26 14:10] LABS: Albumin Level 4.4 g/dl (3.5-5.0); Chloride 98 mmol/L (98-107); Sodium 138 mmol/L (136-145)
[2025-02-26 14:11] LABS: Potassium 4.0 mmoL/L (3.5-5.1)
[2025-02-26 14:12] LABS: Hematocrit 44.3 % (42.0-52.0); Hemoglobin 14.9 g/dL (14.1-18.0); Immature Granulocytes % 0.6 %; Mean Corpuscular HGB Conc 33.6 g/dL (31.8-35.4); Mean Corpuscular Hemoglobin 30.1 pg (27.0-31.2); Mean Corpuscular Volume 89.5 fl (80-94); Nucleated Red Blood Cells % 0 %; Platelet Count 376 K/mm3 (142-424); Red Blood Count 4.95 M/mm3 (4.60-6.20); Red Cell Distribution Width-SD 47.7 fL; White Blood Count 16.6 K/mm3 (4.8-10.8)
[2025-02-26 14:13] LABS: Alanine Aminotransferase 41 U/L (12-78); Albumin/Globulin Ratio 1.1 (1.1-1.8); Alkaline Phosphatase 76 U/L (38-126); Anion Gap 23.0 mEq/L (5-15); Aspartate Amino Transferase 50 U/L (17-59); Bilirubin,Total 1.1 mg/dl (0.2-1.3); Blood Urea Nitrogen 33 mg/dl (9-20); Carbon Dioxide 21 mmol/L (22.0-30.0); Creatinine Clearance Estimated 75 mL/min (50-200); Creatinine,Serum 1.50 mg/dl (0.66-1.25); Estimated Glomerular Filt Rate 47 ml/min (>60); GFR (African American) 57 ML/MIN (>60); Globulin 4.0 g/dL (1.3-3.2); Total Protein,Serum 8.4 g/dl (6.3-8.2)
[2025-02-26 14:14] LABS: Calcium 10.0 mg/dl (8.4-10.2); Glucose 222 mg/dl (74-100); Magnesium 2.1 mg/dl (1.6-2.3)
--- NOTE | 2025-02-26 14:22 | EXP.ACUTE.PN ---
Subjective *Date: 02/26/25 *Time: 15:53 Interval history: Initially plan to send patient home today. I done well for 48 hours with no arrhythmias. Status post cath. Stable on room air. Upon ambulating to discharge, patient went into A-fib with RVR. Became diaphoretic and hypotensive. Was started on diltiazem drip with improvement in rate. Discharge canceled and patient was transition to stepdown for further management. Remained stable on room air. Feeling somewhat better with improvement in blood pressure with heart rate control. Medical Exam Vital signs and Labs for Last 24 Hours: Vital Signs Temp Pulse Pulse Resp BP Pulse Ox O2 Del Method 02/26/25 12:00 150 H 20 100/65 L 99 Room Air 02/26/25 08:53 Room Air 02/26/25 08:00 98.4 F 118 H 16 149/72 H 98 Room Air 02/26/25 08:00 110 H 02/26/25 07:49 Room Air 02/26/25 06:41 Room Air 02/26/25 05:00 Room Air 02/26/25 04:00 98.9 F 104 H 14 182/82 H 99 Room Air 02/26/25 04:00 100 H 02/26/25 03:00 Room Air 02/26/25 01:00 Room Air 02/26/25 00:00 110 H 02/26/25 00:00 98.1 F 107 H 16 139/89 99 02/25/25 23:00 Room Air 02/25/25 20:58 Room Air 02/25/25 20:00 110 H 02/25/25 20:00 Room Air 02/25/25 20:00 98.5 F 122 H 16 208/107 H 97 Room Air 02/25/25 17:39 Room Air 02/25/25 17:00 Room Air 02/25/25 16:00 98.9 F 106 H 20 158/89 H 96 Room Air 02/25/25 16:00 110 H 02/25/25 15:00 Room Air Intake and Output 02/25/25 02/26/25 02/26/25 23:59 07:59 15:59 Intake Total 300 / 721.917 421.917 / 721.917 Output Total 100 / 2000 150 / 400 250 / 400 Balance -100 / -1189.783 150 / 321.917 171.917 / 321.917 Intake: Intake, Oral Amount 300 / 720 420 / 720 Intake, Total IV Amount 1.917 / 1.917 dilTIAZem HCL 100 mg In 0.9 % 1.917 / 1.917 Sodium Chloride 100 ml @ 5 MG/ HR 5 mls/hr IV .Q20H [facility] Rx#: [id number] Output: Output, Urine Amount 100 / 2000 150 / 400 250 / 400 Other: Number of Voids 0 Number of Unmeasured Voids 0 0 1 Weight 104.383 kg Patient Weight 02/26/25 23:59 Weight 104.383 kg Laboratory Results - last 24 hr 02/25/25 20:00: POC Glucose 155 H 02/26/25 05:35: WBC 14.8 H, RBC 5.21, Hgb 15.0, Hct 46.6, MCV 89.4, MCH 28.8, MCHC 32.2, RDW 14.9, Plt Count 341, MPV 9.9, Neut % (Auto) 67.0, Lymph % (Auto) 22.6, [place] % (Auto) 8.9, Eos % (Auto) 0.6, Baso % (Auto) 0.4, Neut # (Auto) 9.9 H, Lymph # (Auto) 3.3, [place] # (Auto) 1.3 H, Eos # (Auto) 0.1, Baso # (Auto) 0.1, Sodium 136, Potassium 4.0, Chloride 103, Carbon Dioxide 20 L, Anion Gap 17.0 H, BUN 24 H D, Creatinine 1.10 D, Estimated Creat Clear 103, Estimated GFR 68, Est GFR ( Amer) 82 D, Glucose 136 H, Calcium 10.1, Magnesium 2.2 D, Total Bilirubin 1.0, AST 52 D, ALT 42, Alkaline Phosphatase 86, Total Protein 8.9 H, Albumin 4.8, Globulin 4.1 H, Albumin/Globulin Ratio 1.2 02/26/25 10:52: POC Glucose 137 H 02/26/25 13:30: POC Glucose 220 H 02/26/25 13:50: WBC 16.6 H, RBC 4.95, Hgb 14.9, Hct 44.3, MCV 89.5, MCH 30.1, MCHC 33.6, RDW 14.8, Plt Count 376, MPV 9.9, Neut % (Auto) 75.6, Lymph % (Auto) 16.2, [place] % (Auto) 6.8, Eos % (Auto) 0.4, Baso % (Auto) 0.4, Neut # (Auto) 12.5 H, Lymph # (Auto) 2.7, [place] # (Auto) 1.1 H, Eos # (Auto) 0.1, Baso # (Auto) 0.1, Sodium 138, Potassium 4.0, Chloride 98, Carbon Dioxide 21 L, Anion Gap 23.0 H, BUN 33 H D, Creatinine 1.50 H D, Estimated Creat Clear 75, Estimated GFR 47 L, Est GFR ( Amer) 57 L D, Glucose 222 H D, Calcium 10.0, Magnesium 2.1, Total Bilirubin 1.1, AST 50, ALT 41, Alkaline Phosphatase 76, Total Protein 8.4 H, Albumin 4.4, Globulin 4.0 H, Albumin/Globulin Ratio 1.1 I & O for Labs for Last 24 Hours: Intake & Output 02/23/25 02/24/25 02/25/25 02/26/25 23:59 23:59 23:59 23:59 Intake Total 809.561 / 809.561 510.217 / 810.217 721.917 / 721.917 Output Total 1750 / 1750 1999 / 1999 400 / 400 Balance -940.439 / -940.439 -1489.783 / -1189.783 321.917 / 321.917 Weight 108.862 kg 107.6 kg 104.383 kg Constitutional: Present mild distress, obese, chronically ill appearing and cooperative Head: Present atraumatic Respiratory: Present normal respiratory effort; Absent rhonchi, wheezes or crackles Cardiac: Present Tachycardia Comment:: Irregularly irregular GI: Present soft and normal bowel sounds; Absent distention or tenderness Extremities: Present normal inspection and full ROM Comment:: Right radial insertion site clean dry and intact Skin: Present intact; Absent erythema Neuro: Present Grossly Intact, alert, awake, oriented x 3 and moves all extremities Assessment and Plan *Assessment and plan (1) New onset a-fib: Status: Acute Category: Medical Code(s): I48.91 - Unspecified atrial fibrillation (2) Hypertensive emergency: Status: Acute Category: Medical Code(s): I16.1 - Hypertensive emergency (3) STEMI (ST elevation myocardial infarction): Status: Acute Category: Medical Code(s): I21.3 - ST elevation (STEMI) myocardial infarction of unspecified site (4) CAD (coronary artery disease): Status: Acute Category: Medical Code(s): I25.10 - Atherosclerotic heart disease of [place] coronary artery without angina pectoris (5) Type 2 diabetes mellitus: Status: Acute Category: Medical Code(s): E11.9 - Type 2 diabetes mellitus without complications (6) Obesity: Status: Acute Category: Medical Code(s): E66.9 - Obesity, unspecified Plan Harjeet Yoon is a 64-year-old male with a medical history significant for former smoker, hypertension, type 2 diabetes, obesity who presents as a transfer from [facility] after presenting with chest pain. Patient states he started having some substernal chest pain this morning after going to the grocery store. He denies radiation, concomitant shortness of breath or dizziness. Denies former cardiac history. No recent medication changes. He states he takes for blood pressure medications. Former intermittent smoker, does not drink alcohol much. Dr. Dominguez was consulted and noted he had ST elevations in leads V2 and V3 with hyperacute T waves, and patient was transferred to our facility with STEMI alert. He received 1 stent to the LAD. Patient tolerated procedure well. It was noted his systolic blood pressures were in the 200s, was started on nitroprusside drip. On my evaluation, patient was lying comfortably in bed without acute distress. No chest pain, shortness of breath. Workup significant for WBC 15.4, hemoglobin A1c 6.9%, BNP 685. Discussed case with Dr. Dominguez and agreed to admit for further evaluation and management. # Acute onset of A-fib, new diagnosis #Hypertensive emergency, resolved #STEMI #Hypertension #CAD ? Patient presented as a transfer from [facility] as a STEMI. EKG with ST elevations in leads V2 and V3 with hyperacute T waves. Systolic blood pressures were noted to be in the 200s. ? Cardiology consulted, s/p PCI on 02/24/2025 with CATE x 1 to the LAD. Patient tolerated procedure well. ? ECHO on 02/25/2025 revealed LVEF 65%, akinesis of the LV apical wall. Renal artery duplex remarkable for significant renal artery stenosis. ? A1c 6.9%, LDL 92, TSH normal. ? Planned to discharge home today. Developed A-fib with RVR however. Initiated on diltiazem drip. Goal rate less than 110. Remains in A-fib in the morning, will consider SUNSHINE and cardioversion - Continue metoprolol succinate, increase to 100 mg twice daily - Will administer 500 cc bolus x 1 - Cardiology assisting with care, recommend continuing amlodipine 10 mg, losartan 100 mg, hydrochlorothiazide 25 mg, hydralazine 100 mg 3 times a day - Continue aspirin 81 mg, Brilinta 90 mg twice daily, atorvastatin 40 mg - Administered Lovenox 1 mg/kg once. Will initiate Eliquis 5 mg twice daily due to new onset A-fib - Continuous cardiac telemetry. - White count 14.4, hemoglobin 14.9; kidney function at baseline with BUN 33, creatinine 1.5, magnesium 2.1, calcium 10. - Given his soft blood pressure and A-fib, will administer 1 g calcium gluconate IV with the initiation of diltiazem to decrease risk for hypotension - Magnesium 2.1 - Repeat CBC, CMP, magnesium ordered for the morning. - Per my review of EKG, patient is in A-fib with RVR #Type 2 diabetes ? Hemoglobin A1c 6.9%. YUNG, KHANH glucose checks. Hold home metformin for now. #Rheumatoid arthritis ? Continue home prednisone 5 g 3 times a day. #Obesity ? BMI 33. Complicates all aspects of care. Full code DVT prophylaxis: Eliquis Diabetic diet; n.p.o. at midnight
[2025-02-26 15:18] LABS: POC Glucose,Bedside 130 gm/dL (70-110)
[2025-02-26] MEDS: METOPROLOL TARTRATE 5MG/5ML VIAL 5 MG IV ×2 (15:35→17:37)
[2025-02-26] MEDS: 0.9 % SODIUM CHLORIDE 1000ML 500 ML IV (15:47)
[2025-02-26] MEDS: CALCIUM GLUC IN NACL, ISO-OSM 1 GM/50 ML BAG IV (16:41)
[2025-02-26 17:23] LABS: POC Glucose,Bedside 157 gm/dL (70-110)
[2025-02-26] MEDS: ONDANSETRON 4MG/2ML VIAL 4 MG IV (17:30)
[2025-02-26] MEDS: HYDROCODONE/APAP 5/325 MG TABLET 1 TAB PO (17:35)
[2025-02-26] MEDS: CALCIUM CARBONATE 500MG CHEWTAB 500 MG PO (17:54)
[2025-02-26] MEDS: POLYETHYLENE GLYCOL 3350 17 GM PACKET PO (18:46)
[2025-02-26 20:12] LABS: POC Glucose,Bedside 145 gm/dL (70-110)
[2025-02-26] MEDS: ATORVASTATIN 40MG TABLET 80 MG PO (20:51)
[2025-02-26] MEDS: MELATONIN 5MG TABLET 5 MG PO (20:54)
[2025-02-26] MEDS: METOPROLOL SUCCINATE XL 100MG TABLET 100 MG PO (21:01)
[2025-02-26] MEDS: FAMOTIDINE 20MG TABLET 20 MG PO (21:06)
[2025-02-26] MEDS: SENNOSIDES 8.6MG/DOCUSATE 50MG TABLET 1 TAB PO (21:38)
--- NOTE | 2025-02-26 22:08 | PC.NURSE ---
Contacted Nelly DYSON before admin night time meds regarding pts BP meds while on dilt gtt. Pts HR has been 90's-low 100's and SBP low 100's-110's. States to hold hydralazine and give metoprolol
[2025-02-26] MEDS: 0.9 % SODIUM CHLORIDE 500 ML 999 ML IV (23:43)
--- NOTE | 2025-02-26 23:45 | PC.NURSE ---
Pts SBP decreased to 70's. Dilt was infusing @5 mg/hr. Gtt discontinued and Nelly SIMMONSN notified. Orders received and carried out for NS bolus 500ml. Shortly after starting bolus pt noted to be in NSR w/ rate 60's-70's on tele. EKG obtained and Nelly DYSON notified. No PO Dilt per Nelly DYSON.
[2025-02-27] VITALS (16 sets, daily range): BP systolic 110–146; BP diastolic 66–92; PULSE 72–97; RESP 12–24; TEMP 36.3–37; O2SAT 95–99; BMI 32.5
[2025-02-27 06:15] LABS: POC Glucose,Bedside 125 gm/dL (70-110)
[2025-02-27 06:16] LABS: Hematocrit 43.9 % (42.0-52.0); Hemoglobin 13.7 g/dL (14.1-18.0); Immature Granulocytes % 0.4 %; Mean Corpuscular HGB Conc 31.2 g/dL (31.8-35.4); Mean Corpuscular Hemoglobin 28.3 pg (27.0-31.2); Mean Corpuscular Volume 90.7 fl (80-94); Nucleated Red Blood Cells % 0 %; Platelet Count 309 K/mm3 (142-424); Red Blood Count 4.84 M/mm3 (4.60-6.20); Red Cell Distribution Width-SD 49.1 fL; White Blood Count 13.8 K/mm3 (4.8-10.8)
[2025-02-27 06:36] LABS: Alanine Aminotransferase 35 U/L (12-78); Albumin Level 4.2 g/dl (3.5-5.0); Albumin/Globulin Ratio 1.2 (1.1-1.8); Alkaline Phosphatase 72 U/L (38-126); Aspartate Amino Transferase 48 U/L (17-59); Bilirubin,Total 1.0 mg/dl (0.2-1.3); Blood Urea Nitrogen 39 mg/dl (9-20); Calcium 9.7 mg/dl (8.4-10.2); Carbon Dioxide 19 mmol/L (22.0-30.0); Chloride 103 mmol/L (98-107); Creatinine Clearance Estimated 104 mL/min (50-200); Creatinine,Serum 1.10 mg/dl (0.66-1.25); Estimated Glomerular Filt Rate 68 ml/min (>60); GFR (African American) 82 ML/MIN (>60); Globulin 3.6 g/dL (1.3-3.2); Glucose 127 mg/dl (74-100); Magnesium 2.1 mg/dl (1.6-2.3); Sodium 129 mmol/L (136-145); Total Protein,Serum 7.8 g/dl (6.3-8.2)
[2025-02-27 07:25] LABS: Anion Gap 11.6 mEq/L (5-15); Potassium 4.6 mmoL/L (3.5-5.1)
[2025-02-27] MEDS: FAMOTIDINE 20MG TABLET 20 MG PO (08:04)
[2025-02-27] MEDS: HYDRALAZINE HCL 25MG TABLET 100 MG PO ×2 (08:05→12:51)
[2025-02-27] MEDS: SENNOSIDES 8.6MG/DOCUSATE 50MG TABLET 1 TAB PO (08:05)
[2025-02-27] MEDS: dilTIAZem HCL 180MG CAP.ER.24H 180 MG PO (08:05)
[2025-02-27] MEDS: IRBESARTAN 300MG TABLET 300 MG PO (08:06)
[2025-02-27] MEDS: ASPIRIN EC 81MG TABLET 81 MG PO (08:06)
[2025-02-27] MEDS: METOPROLOL SUCCINATE XL 100MG TABLET 100 MG PO (08:07)
--- NOTE | 2025-02-27 09:12 | EXP.CARD.PN ---
Subjective Subjective Date: 02/27/25 Time: 09:13 Interval history: Converted to sinus rhythm around midnight. Metoprolol increased and low-dose Cardizem added. He is maintaining sinus rhythm and symptom-free this morning asking to go home. Exam Data for Last 24 hours Vital signs and Labs for Last 24 Hours: Temp Pulse Resp BP Pulse Ox O2 Del Method 98.1 F 84 24 146/87 H 98 Room Air 02/27/25 08:01 02/27/25 08:01 02/27/25 08:01 02/27/25 08:01 02/27/25 08:01 02/27/25 08:01 Laboratory Results - last 24 hr 02/26/25 05:09: POC Glucose 130 H 02/26/25 10:52: POC Glucose 137 H 02/26/25 13:30: POC Glucose 220 H 02/26/25 13:50: WBC 16.6 H, RBC 4.95, Hgb 14.9, Hct 44.3, MCV 89.5, MCH 30.1, MCHC 33.6, RDW 14.8, Plt Count 376, MPV 9.9, Neut % (Auto) 75.6, Lymph % (Auto) 16.2, [place] % (Auto) 6.8, Eos % (Auto) 0.4, Baso % (Auto) 0.4, Neut # (Auto) 12.5 H, Lymph # (Auto) 2.7, [place] # (Auto) 1.1 H, Eos # (Auto) 0.1, Baso # (Auto) 0.1, Sodium 138, Potassium 4.0, Chloride 98, Carbon Dioxide 21 L, Anion Gap 23.0 H, BUN 33 H D, Creatinine 1.50 H D, Estimated Creat Clear 75, Estimated GFR 47 L, Est GFR ( Amer) 57 L D, Glucose 222 H D, Calcium 10.0, Magnesium 2.1, Total Bilirubin 1.1, AST 50, ALT 41, Alkaline Phosphatase 76, Total Protein 8.4 H, Albumin 4.4, Globulin 4.0 H, Albumin/Globulin Ratio 1.1 02/26/25 17:15: POC Glucose 157 H 02/26/25 20:03: POC Glucose 145 H 02/27/25 05:52: WBC 13.8 H, RBC 4.84, Hgb 13.7 L, Hct 43.9, MCV 90.7, MCH 28.3, MCHC 31.2 L, RDW 14.9, Plt Count 309, MPV 10.0, Neut % (Auto) 76.1, Lymph % (Auto) 15.2, [place] % (Auto) 7.6, Eos % (Auto) 0.3, Baso % (Auto) 0.4, Neut # (Auto) 10.5 H, Lymph # (Auto) 2.1, [place] # (Auto) 1.1 H, Eos # (Auto) 0.0, Baso # (Auto) 0.1, Sodium 129 L, Potassium 4.6, Chloride 103, Carbon Dioxide 19 L, Anion Gap 11.6, BUN 39 H, Creatinine 1.10 D, Estimated Creat Clear 104, Estimated GFR 68, Est GFR ( Amer) 82 D, Glucose 127 H D, Calcium 9.7, Magnesium 2.1, Total Bilirubin 1.0, AST 48, ALT 35, Alkaline Phosphatase 72, Total Protein 7.8, Albumin 4.2, Globulin 3.6 H, Albumin/Globulin Ratio 1.2 02/27/25 06:09: POC Glucose 125 H I & O for Last 24 hours: Intake & Output 02/24/25 02/25/25 02/26/25 02/27/25 23:59 23:59 23:59 23:59 Intake Total 809.561 / 809.561 510.217 / 939.054 9037.083 / 1381.083 500 / 500 Output Total 1750 / 1750 2000 / 2000 400 / 400 550 / 550 Balance -940.439 / -940.439 -1489.783 / -1189.783 981.083 / 981.083 -50 / -50 Weight 240 lb 237 lb 3.478 oz 230 lb 2 oz 232 lb 9.6 oz Constitutional Constitutional: no acute distress and cooperative *Routine HEENT Exam Eye: Present PERRL *Routine Respiratory Exam Respiratory: Present CTA bilaterally; Absent accessory muscle use, wheezes or crackles *Routine Cardiovascular Exam Cardiovascular: Present RRR, Normal S1 and Normal S2; Absent murmur, gallop or rubs *Routine Abdominal Exam Abdominal: Present soft; Absent tenderness *Routine Extremities Exam Extremities: Present pulses intact; Absent cyanosis or edema *Routine Skin Exam Skin: Present intact; Absent erythema or wounds *Routine Neurological Exam Neurological: Present alert and oriented X3 Routine Psychiatric Exam Psychiatric: Present cooperative Progress Note: A&P Assessment and plan (1) New onset a-fib: Status: Acute (2) STEMI (ST elevation myocardial infarction): Status: Acute (3) Hypertensive emergency: Status: Acute (4) CAD (coronary artery disease): Status: Acute (5) Type 2 diabetes mellitus: Status: Acute (6) Obesity: Status: Acute Assessment and Plan Assessment and Plan for All Diagnoses:: CAD s/p AW-STEMI 02/24 - new dx this admission - LHC: stent to occluded LAD, other vessels OK - ECHO: EF 65% but akinesis of LV apical wall - GDMT for [place] -aspirin, Brilinta, statin, beta-delvin - recommend 2 week monitor at discharge to eval for VT A-fib RVR - new dx this admission, just prior to discharge yesterday with rates up to 220 - converted to SR with rate control - initially IV cardizem, now Metoprolol and PO Cardizem - CHADS-VASC = 3 (CAD, Htn, DM). Agreeable to Eliquis 5mg BID. Htn - stable off Nitro drip - Cont Irbesartan, hydralazine, metoprolol, hydrochlorothiazide - Change amlodipine to Cardizem for A-fib rate control. DM-II - A1C 6.9 - cosider GLP-1 as outpatient HLD - LDL 92, goal is <55 now with CAD/DM - add high dose statin CV stable for discharge home. He already has 2-week monitor in place. Recommend he check blood pressure twice daily. Follow-up in our office 1-2 weeks. CV DC medications: Aspirin 81 mg 1 p.o. daily Brilinta 90 mg 1 p.o. twice daily Eliquis 5mg 1 p.o. daily Atorvastatin 80 mg 1 p.o. nightly Irbesartan 300 mg 1 p.o. daily Hydralazine 100 mg 3 times daily Metoprolol XL 100 mg twice daily-this is patient preferred regimen rather than daily Hydrochlorothiazide 25 mg p.o. daily Cardizem CD 180mg daily
[2025-02-27] MEDS: APIXABAN 5MG TABLET 5 MG PO (09:29)
--- NOTE | 2025-02-27 10:27 | EXP.DC.SUM ---
General Admission date:: 02/24/25 Discharge date: 02/27/25 HPI HPI HPI: Harjeet Yoon is a 64-year-old male with a medical history significant for former smoker, hypertension, type 2 diabetes, obesity who presents as a transfer from [facility] after presenting with chest pain. Patient states he started having some substernal chest pain this morning after going to the grocery store. He denies radiation, concomitant shortness of breath or dizziness. Denies former cardiac history. No recent medication changes. He states he takes for blood pressure medications. Former intermittent smoker, does not drink alcohol much. Dr. Dominguez was consulted and noted he had ST elevations in leads V2 and V3 with hyperacute T waves, and patient was transferred to our facility with STEMI alert. He received 1 stent to the LAD. Patient tolerated procedure well. It was noted his systolic blood pressures were in the 200s, was started on nitroprusside drip. On my evaluation, patient was lying comfortably in bed without acute distress. No chest pain, shortness of breath. Workup significant for WBC 15.4, hemoglobin A1c 6.9%, BNP 685. Discussed case with Dr. Dominguez and agreed to admit for further evaluation and management. Hospital Course Hospital Course Hospital Course: Harjeet Yoon is a 64-year-old male with a medical history significant for former smoker, hypertension, type 2 diabetes, obesity who presents as a transfer from [facility] after presenting with chest pain. Patient states he started having some substernal chest pain this morning after going to the grocery store. He denies radiation, concomitant shortness of breath or dizziness. Denies former cardiac history. No recent medication changes. He states he takes for blood pressure medications. Former intermittent smoker, does not drink alcohol much. Dr. Dominguez was consulted and noted he had ST elevations in leads V2 and V3 with hyperacute T waves, and patient was transferred to our facility with STEMI alert. He received 1 stent to the LAD. Patient tolerated procedure well. It was noted his systolic blood pressures were in the 200s, was started on nitroprusside drip. On my evaluation, patient was lying comfortably in bed without acute distress. No chest pain, shortness of breath. Workup significant for WBC 15.4, hemoglobin A1c 6.9%, BNP 685. Discussed case with Dr. Dominguez and agreed to admit for further evaluation and management. Patient responded well to heart cath. Monitored for 48 hours. At time of initial discharge, developed acute A-fib with RVR. Responded well to diltiazem drip with improved rate control and conversion back to sinus rhythm by morning. Stable discharge home on therapy for A-fib, VA, and hypertension. Plan to follow-up with cardiology in the next 1 to 2 weeks. Problems addressed as follows: # Acute onset of A-fib, new diagnosis #Hypertensive emergency, resolved #STEMI #Hypertension #CAD ? Patient presented as a transfer from [facility] as a STEMI. EKG with ST elevations in leads V2 and V3 with hyperacute T waves. Systolic blood pressures were noted to be in the 200s. Cardiology consulted, s/p PCI on 02/24/2025 with CATE x 1 to the LAD. Patient tolerated procedure well. ECHO on 02/25/2025 revealed LVEF 65%, akinesis of the LV apical wall. Renal artery duplex remarkable for significant renal artery stenosis. A1c 6.9%, LDL 92, TSH normal. Was monitored for 48 hours on GDMT. Did well with no arrhythmias until initiating discharge on 02/26. Went into A-fib with RVR as he got up to walk out with his brother. Was started on diltiazem drip and started on anticoagulation with Eliquis. Converted overnight to sinus rhythm. Will continue diltiazem extended release 180 mg daily. Metoprolol succinate increased to 100 mg twice daily. - Continue home regimen for hypertension as follows: losartan 100 mg, hydrochlorothiazide 25 mg, hydralazine 100 mg 3 times a day - Continue aspirin 81 mg, Brilinta 90 mg twice daily, atorvastatin 40 mg -Will need triple therapy for 1 month with aspirin, Brilinta, Eliquis. Decreased Eliquis and Brilinta thereafter. Continue Eliquis 5 mg twice daily #Type 2 diabetes ? Hemoglobin A1c 6.9%. Sliding scale insulin during admission. Resume home metformin at discharge. A1c goal less than 7 #Rheumatoid arthritis ? Continue home prednisone 5 g 3 times a day. Total time spent on discharge 32 minutes in counseling, documentation, chart review, and direct care with patient. Exam Data for Last 24 hours Vital signs and Labs for Last 24 Hours: Temp Pulse Resp BP Pulse Ox O2 Del Method 98.9 F 104 H 14 182/82 H 99 Room Air 02/26/25 04:00 02/26/25 04:00 02/26/25 04:00 02/26/25 04:00 02/26/25 04:00 02/26/25 07:49 Laboratory Results - last 24 hr 02/25/25 11:04: POC Glucose 163 H 02/25/25 20:00: POC Glucose 155 H 02/26/25 05:35: WBC 14.8 H, RBC 5.21, Hgb 15.0, Hct 46.6, MCV 89.4, MCH 28.8, MCHC 32.2, RDW 14.9, Plt Count 341, MPV 9.9, Neut % (Auto) 67.0, Lymph % (Auto) 22.6, [place] % (Auto) 8.9, Eos % (Auto) 0.6, Baso % (Auto) 0.4, Neut # (Auto) 9.9 H, Lymph # (Auto) 3.3, [place] # (Auto) 1.3 H, Eos # (Auto) 0.1, Baso # (Auto) 0.1 I & O for Last 24 hours: Intake & Output 02/23/25 02/24/25 02/25/25 02/26/25 23:59 23:59 23:59 23:59 Intake Total 809.561 / 809.561 510.217 / 810.217 300 / 300 Output Total 1750 / 1750 1999 / 1999 150 / 150 Balance -940.439 / -940.439 -1489.783 / -1189.783 150 / 150 Weight 108.862 kg 107.6 kg 104.383 kg Constitutional Constitutional: no acute distress and cooperative *Routine HEENT Exam Eye: Present PERRL *Routine Respiratory Exam Respiratory: Present CTA bilaterally; Absent accessory muscle use, wheezes or crackles *Routine Cardiovascular Exam Cardiovascular: Present RRR, Normal S1 and Normal S2; Absent murmur, gallop or rubs *Routine Abdominal Exam Abdominal: Present soft; Absent tenderness *Routine Rectal Exam Patient deferred: visual exam *Routine Exam Patient deferred: penile exam *Routine Extremities Exam Extremities: Present pulses intact; Absent cyanosis or edema *Routine Skin Exam Skin: Present intact; Absent erythema or wounds *Routine Neurological Exam Neurological: Present alert, oriented X3 and moving all extremities; Absent altered mental status Routine Psychiatric Exam Psychiatric: Present cooperative Results Data Completed and Pending Labs on day of discharge: Labs from last 24 hours 02/26/25 02/25/25 02/25/25 05:35 20:00 11:04 WBC 14.8 H RBC 5.21 Hgb 15.0 Hct 46.6 MCV 89.4 MCH 28.8 MCHC 32.2 RDW 14.9 Plt Count 341 MPV 9.9 Neut % (Auto) 67.0 Lymph % (Auto) 22.6 [place] % (Auto) 8.9 Eos % (Auto) 0.6 Baso % (Auto) 0.4 Neut # (Auto) 9.9 H Lymph # (Auto) 3.3 [place] # (Auto) 1.3 H Eos # (Auto) 0.1 Baso # (Auto) 0.1 POC Glucose 155 H 163 H DS: Diagnosis Discharge Diagnosis (1) STEMI (ST elevation myocardial infarction): Status: Acute Code(s): I21.3 - ST elevation (STEMI) myocardial infarction of unspecified site (2) CAD (coronary artery disease): Status: Acute Code(s): I25.10 - Atherosclerotic heart disease of [place] coronary artery without angina pectoris (3) Type 2 diabetes mellitus: Status: Acute Code(s): E11.9 - Type 2 diabetes mellitus without complications (4) Hypertensive emergency: Status: Acute Code(s): I16.1 - Hypertensive emergency (5) New onset a-fib: Status: Acute Code(s): I48.91 - Unspecified atrial fibrillation (6) Obesity: Status: Acute Code(s): E66.9 - Obesity, unspecified Meds Home Medications and Allergies Home Medications ?Medication ?Instructions ?Recorded ?Confirmed ?Type amlodipine 10 mg tablet 10 mg PO DAILY 02/24/25 02/24/25 History Held on 02/27/25. Instructions: pending follow-up with cardiology cholecalciferol (vitamin D3) 50 2,000 unit PO DAILY 02/24/25 02/24/25 History mcg (2,000 unit) capsule (Vitamin D3) doxycycline hyclate 50 mg capsule 50 mg PO DAILY 02/24/25 02/24/25 History losartan 100 1 tab PO DAILY 02/24/25 02/24/25 History mg-hydrochlorothiazide 25 mg tablet metformin 500 mg tablet 500 mg PO BID 02/24/25 02/24/25 History prednisone 5 mg tablet 15 mg PO DAILY 02/24/25 02/24/25 History aspirin 81 mg tablet,delayed 81 mg PO DAILY 02/25/25 02/25/25 History release atorvastatin 40 mg tablet 80 mg (2 x 40 mg) PO HS 30 days 02/26/25 Rx #60 tabs hydralazine 100 mg tablet 100 mg PO TID #90 tabs 02/26/25 Rx ticagrelor 90 mg tablet (Brilinta) 90 mg PO BID 30 days #60 tabs 02/26/25 Rx apixaban 5 mg tablet (Eliquis) 5 mg PO BID #60 tabs 02/27/25 Rx diltiazem HCl 180 mg 180 mg PO DAILY 30 days #30 caps 02/27/25 Rx capsule,extended release 24 hr metoprolol succinate 100 mg 100 mg PO BID 30 days #60 tabs 02/27/25 Rx tablet,extended release 24 hr pantoprazole 40 mg tablet,delayed 40 mg PO DAILY #30 tabs 02/27/25 Rx release New Prescriptions to Start Prescriptions: apixaban [Eliquis] Kevyn,Delgado atorvastatin Kevyn,Delgado diltiazem HCl Kevyn,Delgado hydralazine Kevyn,Delgado metoprolol succinate Kevyn,Delgado pantoprazole Kevyn,Delgado ticagrelor [Brilinta] Delgado Bagley Allergies Allergy/AdvReac Type Severity Reaction Status Date / Time No Known Allergies Allergy Verified 02/24/25 15:15 Discharge Plan Disposition Patient Disposition: Home, Self-Care Condition: Fair Discharge Order Discharge Orders: Discharge Order (Routine); Ordered 02/27/25 Ordered By: Delgado Bagley Follow up Plan Follow up with: Joel Partida MD [Primary Care Provider, Medical] - 03/04/25 10:30 am Rigo Dominguez MD [Staff Physician, Cardiology] - 03/11/25 11:30 am Prescriptions/Medication Reconciliation: New atorvastatin 40 mg Tablet 80 mg PO HS 30 Days Qty: 60 0RF ticagrelor [Brilinta] 90 mg Tablet 90 mg PO BID 30 Days Qty: 60 0RF hydralazine 100 mg tablet 100 mg PO TID Qty: 90 0RF diltiazem HCl 180 mg Capsule,Extended Release 24hr 180 mg PO DAILY 30 Days Qty: 30 0RF metoprolol succinate 100 mg Tablet Extended Release 24 Hr 100 mg PO BID 30 Days Qty: 60 0RF Eliquis 5 mg Tablet 5 mg PO BID Qty: 60 0RF pantoprazole 40 mg tablet,delayed release (DR/EC) 40 mg PO DAILY Qty: 30 0RF Continued metformin 500 mg tablet 500 mg PO BID doxycycline hyclate 50 mg capsule 50 mg PO DAILY prednisone 5 mg tablet 15 mg PO DAILY losartan-hydrochlorothiazide 100-25 mg tablet 1 tab PO DAILY cholecalciferol (vitamin D3) [Vitamin D3] 50 mcg (2,000 unit) Capsule 2,000 unit PO DAILY aspirin 81 mg Tablet,Delayed Release (Dr/Ec) 81 mg PO DAILY Held amlodipine 10 mg tablet 10 mg PO DAILY Hold Instructions: pending follow-up with cardiology Discontinued metoprolol succinate 50 mg tablet extended release 24 hr 50 mg PO BID hydralazine 25 mg tablet 25 mg PO BID rosuvastatin 5 mg tablet 5 mg PO DAILY Problem Reconciliation Problems Reviewed?: Yes Patient Discharge Instructions ACTIVITY: Continue current activity DIET: continue same diet Patient Instructions: Cardiac Catheterization, DI for Chest Pain, Cardiology Catheterization Patient / Family Discharge Instructions Print Language: Icelandic Providers Primary Care Provider: Joel Partida Admit Provider: Prabhu Dove Attending Provider: Prabhu Dove
--- NOTE | 2025-02-27 10:31 | PC.NURSE ---
PT AMBULATED WELL INDEPENDENTLY WITH STAFF WITHIN ARMS REACH. TELE REMAINS IN NORMAL SINUS RHYTHM WITH A RATE OF 90.
[2025-02-27 11:27] LABS: Microscopic, Urine URINE MICROSCOPIC (MICROSCOPIC)
[2025-02-27 11:34] LABS: Bilirubin,Urine Negative (Negative); Color,Urine YELLOW (Yellow); Glucose,Urine (UA) Negative (Negative); Ketones,Urine 1+ (Negative); Leukocyte Esterase,Urine Negative (Negative); PH,Urine 5.5 (5.0-8.5); Protein,Urine Negative (Negative); Specific Gravity, Urine >= 1.030 (1.005-1.030); Urobilinogen,Urine 0.2 EU/dl (0.2)
[2025-02-27 11:44] LABS: POC Glucose,Bedside 143 gm/dL (70-110)
[2025-02-27 11:47] LABS: Uric Acid Crystals,Urine 1+ /lpf
== END 2025-02-27 14:52 | disposition home or self-care (01) ==
LOC: ICU 13:48 → 2ND 02-25 14:12 → ICU 02-25 14:58 → 2ND 02-26 13:32 → ICU 02-26 13:58
PROVIDERS: Internal Medicine; Internal Medicine Adolescent Medicine; Nurse Practitioner Acute Care; Admitting Provider Student in an Organized Health Care Education/Training Program; PCP Emergency Medicine; Visit Provider Student in an Organized Health Care Education/Training Program
PROC: 4A023N7 Measurement of Cardiac Sampling and Pressure, Left Heart, Percutaneous Approach (ICD-10-PCS; CPT 93452; principal; 2025-02-24 12:30)
DX: I21.09 ST elevation (STEMI) myocardial infarction involving other coronary artery of anterior wall (principal); I16.1 Hypertensive emergency; I48.91 Unspecified atrial fibrillation; I25.10 Atherosclerotic heart disease of native coronary artery without angina pectoris; I10 Essential (primary) hypertension; Z87.891 Personal history of nicotine dependence; E66.9 Obesity, unspecified; E11.9 Type 2 diabetes mellitus without complications; M06.9 Rheumatoid arthritis, unspecified; Z79.52 Long term (current) use of systemic steroids; Z79.82 Long term (current) use of aspirin; Z79.84 Long term (current) use of oral hypoglycemic drugs; Z79.01 Long term (current) use of anticoagulants; K21.9 Gastro-esophageal reflux disease without esophagitis; Z86.718 Personal history of other venous thrombosis and embolism; E78.5 Hyperlipidemia, unspecified; Z68.33 Body mass index [BMI] 33.0-33.9, adult
CPT/HCPCS: 36415; 80053; 80061; 81001; 82962; 83036; 83735; 83880; 84443; 85025; 85347; 93005; 93270; 93306; 93976; 99152; 99153; C1725; C1769; C1874; C1887; J0612; J1200; J1644; J1650; J2003; J2405; J3010; J7030; J7040; J7060; J7512; Q9957; Q9967